=== PATIENT | female | born 1980 | race Caucasian/White ===

== ENCOUNTER 2016-06-21 05:41 | Emergency (ER) | payer BC ==
[~2016-06-21 05:41] MED LIST: AZEL137S6; FEXO-10; SENN-31; [UNRECOGNIZED DRUG - CODE]
--- NOTE | 2016-06-21 05:49 | ERD ---
ER Documentation Chief Complaint Date/Time DATE: 06/21/16 TIME: 05:47 Chief Complaint HPI This is a 36-year-old female employee who presents to the emergency room of 4 routine TB screen. This patient is allergic to the purified protein derivative. The patient has no cough, no fever no no weight loss, and no shortness of breath. ROS All systems reviewed and are negative except as per history of present illness. Medications Home Meds Reported Medications Ferrous Sulfate (Slow Fe) 160 Mg Tablet.sa 01/26/10 Azelastine Hcl* (Astelin*) 137 Mcg [place].pump 01/26/10 Fexofenadine Hcl (Bridgett) 60 Mg Tablet 01/26/10 Sennosides-Docusate Sodium (Esmer-Colace) 1 Tab Tablet 01/26/10 Allergies Allergies: Coded Allergies: Ciprofloxacin (Verified Allergy, Mild, RASH, 01/26/10) Metoclopramide (Verified Allergy, Mild, ANXIETY, 01/26/10) Metronidazole (Verified Allergy, Mild, RASH, 01/26/10) Penicillins (Verified Allergy, Mild, RASH, 01/26/10) Uncoded Allergies: [id number] (SULFA (SULFONAMIDE ANTIBIOTICS)) (Allergy, Mild, RASH, 01/26/10) PMhx/Soc History of Surgery: Yes (MULTIPLE ABD SURG) Anesthesia Reaction: No Hx Neurological Disorder: No Hx Respiratory Disorders: Yes (SINUS) Hx Cardiac Disorders: No Hx Psychiatric Problems: No Hx Miscellaneous Medical Probl: No Hx Alcohol Use: Yes (OCASSIONAL) Hx Substance Use: No Hx Tobacco Use: No Physical Exam Physical Exam Const: No acute distress Head: Atraumatic Eyes: Normal Conjunctiva ENT: Normal External Ears, Nose and Mouth. Neck: Full range of motion..~ No meningismus. Resp: Clear to auscultation bilaterally Cardio: Regular rate and rhythm, no murmurs Abd: Soft, non tender, non distended. 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 She is allergic to the PPD. The patient has had no fevers, no night sweats, no weight loss, no cough, no shortness of breath. Chest x-ray is clear that she will be discharged at this time Departure Diagnosis: Primary Impression: Encounter for medical screening examination Condition: Stable MADIGABY YU Jun 21, 2016 05:48
--- NOTE | 2016-06-21 06:11 | RADRPT ---
PROCEDURE: XR Chest. CLINICAL INDICATION: Tuberculosis screening study TECHNIQUE: Portable single view of the chest COMPARISON: None. FINDINGS: The cardiomediastinal silhouette appears within normal limits. The lungs are clear and no pleural e ffusion or significant edema is seen. No bony abnormality is seen. There is no evidence for acute o r chronic tuberculosis. IMPRESSION: No evidence for acute or chronic tuberculosis. RPTAT: HLBE Adrianna Snow Physician Date Time Electronically viewed and signed by Adrianna Snow Physician on 06/21/2016 06:11 LE/
== END 2016-06-21 06:23 | disposition home or self-care (01) ==
LOC: E/R 05:41
DX: Z11.1 Encounter for screening for respiratory tuberculosis (principal)
CPT/HCPCS: 71010

== ENCOUNTER 2017-03-28 03:56 | Emergency (ER) | payer BC ==
[~2017-03-28] VITALS: Ht 160 cm; Wt 55.0 kg
[2017-03-28 04:03] LABS: URINE BLOOD (Dip) POC 1+ (NEGATIVE)
[2017-03-28 04:13] VITALS: Ht 160 cm; Wt 55.0 kg
[2017-03-28] MEDS ORDERED: HYDROmorphONE 1 MG/ML SYG IV STA (04:29)
[2017-03-28] MEDS ORDERED: FAMOTIDINE 20 MG TAB PO ONE (04:30)
[2017-03-28] MEDS ORDERED: DIPHENHYDRAMINE 50 MG INJ IV ONE (04:30)
[2017-03-28] MEDS ORDERED: DEXAMETHASONE 10 MG/ML 1 ML INJ IV ONE (04:30)
[2017-03-28] MEDS ORDERED: LORA1TAB54 PO (04:35)
[2017-03-28] MEDS ORDERED: DEXT10TA9 PO (04:35)
[2017-03-28] MEDS ORDERED: FAMO-96 PO (04:36)
[2017-03-28] MEDS ORDERED: DEXL30CA2 PO (04:36)
[2017-03-28] MEDS ORDERED: OXYC-279 PO ×2 (04:43→05:52)
[2017-03-28] MEDS ORDERED: EPIN0.3P4 INJ (04:43)
[2017-03-28] MEDS ORDERED: AZIT250T94 PO (04:43)
[2017-03-28] MEDS ORDERED: SOD CHLORIDE 0.9% 1,000 ML IV ONE (05:00)
[2017-03-28] MEDS ORDERED: ALBU18HF INHALATION (05:52)
[2017-03-28 05:56] VITALS: BP 108/58; PULSE 75; RESP 12
--- NOTE | 2017-03-28 05:58 | ERD ---
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 Patient has a past medical history of ADHD, interstitial cystitis, a IBS. Reports that she started to have some fever, chills, body aches last night associated with facial pain. Denies any wheezing, shortness of breath, lip swelling, tongue swelling, diarrhea, chest pain, abdominal pain. ROS All systems reviewed and are negative except as per history of present illness. Medications Home Meds Active Scripts Albuterol Sulfate* (Ventolin HFA*) 18 Gm Hfa.aer.ad, 2 PUFF INHALATION Q4H, #1 INHALER Prov:CHARLES BAR PA-C 03/28/17 Oxycodone HCl/Acetaminophen (Percocet 5-325 mg Tablet) 1 Each Tablet, 1 EACH PO Q6, #4 TAB Prov:CHARLES BAR PA-C 03/28/17 Epinephrine (Epipen 2-Prasanna) 0.3 Mg/0.3 Ml Pen.injctr, 1 EA INJ ONCE Y for ALLERGIC REACTION, #1 EA Prov:CHARLES BAR PA-C 03/28/17 Azithromycin* (Zithromax*) 250 Mg Tablet, 250 MG PO .ZPACK DIRECTED, #6 TAB TAKE 500 MG (2 TABS) THE FIRST DAY THEN 250 MG (1 TAB) DAYS 2-5 Prov:CHARLES BAR PA-C 03/28/17 Reported Medications Famotidine* (Pepcid*) 20 Mg Tablet, 20 MG PO DAILY, #30 TAB 03/28/17 Dexlansoprazole (Dexilant) 30 Mg Cap., 30 MG PO DAILY, #30 CAP 03/28/17 Amphet Yyh-Kqobow-G-Amphet (Adderall) 10 Mg Tablet, 10 MG PO DAILY, TAB 03/28/17 Loratadine/Pseudoephedrine* (Claritin-D* 12 Hr) 5-120 Mg Tab.er.12h, 1 TAB PO Q12, #60 TAB.SA 03/28/17 Ferrous Sulfate (Slow Fe) 160 Mg Tablet.sa 01/26/10 Azelastine Hcl* (Astelin*) 137 Mcg [place].pump 01/26/10 Fexofenadine Hcl (Bridgett) 60 Mg Tablet 01/26/10 Sennosides-Docusate Sodium (Esmer-Colace) 1 Tab Tablet 01/26/10 Allergies Allergies: Coded Allergies: Penicillins (Verified Allergy, Mild, RASH, 01/26/10) ciprofloxacin (Verified Allergy, Mild, RASH, 01/26/10) metoclopramide (Verified Allergy, Mild, ANXIETY, 01/26/10) metronidazole (Verified Allergy, Mild, RASH, 01/26/10) Uncoded Allergies: [id number] (SULFA (SULFONAMIDE ANTIBIOTICS)) (Allergy, Mild, RASH, 01/26/10) PMhx/Soc History of Surgery: Yes (MULTIPLE ABD SURG) Anesthesia Reaction: No Hx Neurological Disorder: No Hx Respiratory Disorders: Yes (SINUS) Hx Cardiac Disorders: No Hx Psychiatric Problems: No Hx Miscellaneous Medical Probl: Yes (Aristides's, IBS, Interstitial cysitis) Hx Alcohol Use: Yes (OCASSIONAL) Hx Substance Use: No Hx Tobacco Use: No Smoking Status: Former smoker Physical Exam Vitals Vital Signs Date Time Temp Pulse Resp B/P Pulse Ox O2 Delivery O2 Flow Rate FiO2 03/28/17 04:13 98.1 84 16 121/78 100 Physical Exam Const: Gze-raq-lmhvkngzb, well-nourished. In no acute distress. Head: Atraumatic, normocephalic. Tenderness to palpation of the frontal and maxillary sinuses. Eyes: Normal Conjunctiva without injection. No purulent discharge. PERRLA. EOMI ENT: Normal external ear. Ear canal without erythema. Tympanic membrane pearly hamilton without effusion or bulging. Nasal canal clear with normal turbinates. Moist oropharynx without tonsillar exudates. Non-erythematous pharynx. Uvula midline. No drooling. No trismus. Neck: No cervical midline tenderness. Full range of motion. No meningismus. No cervical lymphadenopathy. No JVD. Resp: Clear to auscultation bilaterally. No wheezing, rhonchi, rales, or crackles. No accessory muscle use. No retractions. Cardio: Regular rate and rhythm. No murmurs, rubs or gallops. Abd: Soft, non tender, non distended. Normal bowel sounds. No palpable masses. No rebound tenderness. No guarding. Negative McBurney's Point. Negative Fung's Sign. Skin: Normal skin turgor. No petechiae or rashes Back: No midline tenderness. No CVA tenderness. Ext: No cyanosis, or edema. Distal pulses intact bilaterally. Neur: Awake and alert. Normal gait. Normal coordination. Cranial Nerves II- VII intact. Normal finger to nose. Muscle strength 5/5. Sensation intact. Psych: Normal Mood and Affect Results 24 hrs Laboratory Tests Test 03/28/17 04:06 Bedside Urine pH (LAB) 7.0 Bedside Urine Protein (LAB) Trace Bedside Urine Glucose (UA) Negative Bedside Urine Ketones (LAB) Negative Bedside Urine Blood 1+ Bedside Urine Nitrite (LAB) Negative Bedside Urine Leukocyte Esterase (L Negative Current Medications Medications (Trade) Dose Ordered Sig/Liudmila Route PRN Reason Start Time Stop Time Status Last Admin Dose Admin Hydromorphone HCl (Dilaudid) 1 mg ONCE STAT IV 03/28/17 04:29 03/28/17 04:30 DC 03/28/17 04:47 Dexamethasone (Decadron) 10 mg ONCE ONCE IV 03/28/17 04:30 03/28/17 04:31 DC 03/28/17 04:46 Diphenhydramine HCl (Benadryl) 25 mg ONCE ONCE IV 03/28/17 04:30 03/28/17 04:31 DC 03/28/17 04:46 Famotidine 20 mg 20 mg ONCE ONCE PO 03/28/17 04:30 03/28/17 04:31 DC 03/28/17 04:47 Sodium Chloride (NS) 1,000 ml @ 1,000 mls/hr Q1H ONCE IV 03/28/17 05:00 03/28/17 05:59 DC 03/28/17 04:48 Procedures/MDM 36-year-old female patient with a past medical history of IBS, ADHD, interstitial cystitis presents to the ED complaining of body aches, fever, chills, sinus pain. Patient is afebrile nontoxic appearing. Patient has normal vital signs. This patient presents to the ED with symptoms consistent with a viral etiology and sinusitis. Patient's physical exam include lungs which were clear to auscultation and a normal pulse oximetry. There is a low suspicion for pneumonia, pneumothorax, mononucleosis, pulmonary embolism, epiglottitis, otitis media, otitis externa, viral/strep pharyngitis, sinusitis, peritonsillar abscess, mastoiditis, retropharyngeal abscess, meningitis, sepsis , acute abdomen or other emergent conditions. Fluids, rest, and symptomatic treatment are recommended for the management of patient's symptoms. Discharge medications: Percocet, Zithromax, Refill on Epipen, Ventolin Patient was instructed to return to the ED for any new or worsening symptoms. They should otherwise follow up with the primary care provider within 1-2 days. The patient's questions were answered at the time of discharge. Patient understood and agreed with discharge management. Departure Diagnosis: Primary Impression: Hives Additional Impressions: Sinus pain Body aches Condition: Stable Patient Instructions: Allergic Reaction, Other (General), Sinusitis, Abx Tx, Viral Syndrome (Adult) Referrals: [facility] YOU HAVE RECEIVED A MEDICAL SCREENING EXAM AND THE RESULTS INDICATE THAT YOU DO NOT HAVE A CONDITION THAT REQUIRES URGENT TREATMENT IN THE EMERGENCY DEPARTMENT. FURTHER EVALUATION AND TREATMENT OF YOUR CONDITION CAN WAIT UNTIL YOU ARE SEEN IN YOUR DOCTORS OFFICE WITHIN THE NEXT 1-2 DAYS. IT IS YOUR RESPONSIBILITY TO MAKE AN APPOINTMENT FOR FOLOW-UP CARE. IF YOU HAVE A PRIMARY DOCTOR --you should call your primary doctor and schedule an appointment IF YOU DO NOT HAVE A PRIMARY DOCTOR YOU CAN CALL OUR PHYSICIAN REFERRAL HOTLINE AT IF YOU CAN NOT AFFORD TO SEE A PHYSICIAN YOU CAN CHOSE FROM THE FOLLOWING [facility] [address] [facility]. [facility] [address] [facility] [address] [facility]. [facility] [address] [facility]. [facility] [address] [facility]. [facility]. [address] [facility]. [facility] YOU HAVE RECEIVED A MEDICAL SCREENING EXAM AND THE RESULTS INDICATE THAT YOU DO NOT HAVE A CONDITION THAT REQUIRES URGENT TREATMENT IN THE EMERGENCY DEPARTMENT. FURTHER EVALUATION AND TREATMENT OF YOUR CONDITION CAN WAIT UNTIL YOU ARE SEEN IN YOUR DOCTORS OFFICE WITHIN THE NEXT 1-2 DAYS. IT IS YOUR RESPONSIBILITY TO MAKE AN APPOINTMENT FOR FOLOW-UP CARE. IF YOU HAVE A PRIMARY DOCTOR --you should call your primary doctor and schedule and appointment IF YOU DO NOT HAVE A PRIMARY DOCTOR YOU CAN CALL OUR PHYSICIAN REFERRAL HOTLINE AT . IF YOU CAN NOT AFFORD TO SEE A PHYSICIAN YOU CAN CHOSE FROM THE FOLLOWING [facility]: [facility] [address] [place] [address] [facility] [address] [place], [place] [id number] [place] [address] [address] [place] [address] [facility] Additional Instructions: Call your primary care doctor TOMORROW for an appointment during the next 2-3 days.See the doctor sooner or return here if your condition worsens before your appointment time. CHARLES BAR PA-C Mar 28, 2017 05:58
== END 2017-03-28 05:58 | disposition home or self-care (01) ==
LOC: FTE 03:56
DX: L50.9 Urticaria, unspecified (principal); J34.89 Other specified disorders of nose and nasal sinuses; Z87.891 Personal history of nicotine dependence
CPT/HCPCS: 81003; 96374; 96375; 99284; J1100; J1170; J1200; J7030

== ENCOUNTER 2017-07-23 18:34 | Emergency (ER) | END 2017-07-23 22:32 | disposition home or self-care (01) ==

== ENCOUNTER 2017-12-09 05:02 | Emergency (ER) | END 2017-12-09 07:04 | disposition home or self-care (01) ==

== ENCOUNTER 2018-03-12 05:49 | Emergency (ER) | END 2018-03-12 06:54 | disposition home or self-care (01) ==

== ENCOUNTER 2018-03-13 06:29 | Emergency (ER) | END 2018-03-13 07:13 | disposition home or self-care (01) ==

== ENCOUNTER 2018-03-19 21:49 | Emergency (ER) | END 2018-03-20 00:22 | disposition home or self-care (01) ==

== ENCOUNTER 2018-04-13 22:14 | Emergency (ER) | END 2018-04-14 00:44 | disposition home or self-care (01) ==

== ENCOUNTER 2018-05-04 08:43 | Emergency (ER) | END 2018-05-04 11:19 | disposition home or self-care (01) ==